=== PATIENT | female | born 1945 | race American Indian/Alaskan Native ===

== ENCOUNTER 2019-04-12 09:56 | Inpatient (IN) | payer MEDICARE ==
[2019-04-12] MEDS ORDERED: NACL 0.9% 500 ML 500 ML IV ONE (10:25)
--- NOTE | 2019-04-12 10:27 | Emergency Department Report ---
ED GI Bleed HPI - General Chief complaint: GI Bleed Stated complaint: RECTAL BLEEDING Time Seen by Provider: 04/12/19 10:15 Source: patient, RN notes reviewed Mode of arrival: Stretcher Limitations: No Limitations - History of Present Illness Initial comments: Primary care DrLeeann: Dr. Bravo this is a pleasant 73 year old female who is not known to this provider previously Her past medical history includes hypertension. She can't recall a previous co lonoscopy. She presents to the ER with a complaint of painless rectal bleeding times one day. She indicates she is not taking anticoagulation. She denies other injuries, denies other complaints, her bleeding is constant, painless, does not radiate anywhere, started this morning, and does not have exacerbating or relieving factors. MD complaint: gross hematochezia -: Gradual Quality: painless Consistency: constant Improves with: none Worsens with: none Associated Symptoms: denies other symptoms - Related Data Home Medications Medication Instructions Recorded Confirmed Last Taken Carvedilol [Coreg] 6.25 mg PO BID 08/19/13 08/19/13 08/18/13 09:00 Losartan/Hydrochlorothiazide 1 each PO QDAY 08/19/13 08/19/13 08/18/13 09:00 [Hyzaar 100-12.5] Previous Rx's Medication Instructions Recorded Last Taken Type HYDROcodone/APAP 5-325 [[place] 1 each PO Q6HR PRN #20 tablet 08/19/13 Unknown Rx 5/325 mg] Ibuprofen [Motrin] 800 mg PO TID PRN #30 tablet 08/19/13 Unknown Rx Allergies Allergy/AdvReac Type Severity Reaction Status Date / Time No Known Allergies Allergy Unverified 08/19/13 11:14 ED Review of Systems ROS: Stated complaint: RECTAL BLEEDING Other details as noted in HPI Comment: All other systems reviewed and negative Gastrointestinal: hematochezia. denies: abdominal pain, nausea, vomiting, d iarrhea, constipation, hematemesis Genitourinary: denies: dysuria ED Past Medical Hx - Past Medical History Hx Hypertension: Yes Hx Asthma: Yes - Surgical History Additional Surgical History: hysterectomy - Social History Smoking Status: Never Smoker Substance Use Type: None - Medications Home Medications: Home Medications Medication Instructions Recorded Confirmed Last Taken Type Carvedilol [Coreg] 6.25 mg PO BID 08/19/13 08/19/13 08/18/13 09:00 History HYDROcodone/APAP 5-325 [[place] 1 each PO Q6HR PRN #20 tablet 08/19/13 Unknown Rx 5/325 mg] Ibuprofen [Motrin] 800 mg PO TID PRN #30 tablet 08/19/13 Unknown Rx Losartan/Hydrochlorothiazide 1 each PO QDAY 08/19/13 08/19/13 08/18/13 09:00 History [Hyzaar 100-12.5] ED Physical Exam - General Limitations: No Limitations General appearance: alert, in no apparent distress - Head Head exam: Present: atraumatic, normocephalic - Eye Eye exam: Present: normal appearance, EOMI. Absent: nystagmus - ENT ENT exam: Present: normal exam, normal orophraynx, mucous membranes moist, normal external ear exam - Neck Neck exam: Present: normal inspection, full ROM. Absent: tenderness, meningismus - Respiratory Respiratory exam: Present: normal lung sounds bilaterally. Absent: respiratory distress - Cardiovascular Cardiovascular Exam: Present: regular rate, normal rhythm, normal heart sounds. Absent: bradycardia, tachycardia, irregular rhythm, systolic murmur, diastolic murmur, rubs, gallop - GI/Abdominal GI/Abdominal exam: Present: soft. Absent: distended, tenderness, guarding, rebound, rigid, pulsatile mass - Rectal Rectal exam: Present: normal inspection, heme (+) stool, bloody stool, other (dark red bleeding noted on rectal examination, chaperoned by nurse Smith begum) - Extremities Exam Extremities exam: Present: normal inspection, full ROM, other (2+ pulses noted in the bilateral upper, lower extremities. Compartments soft. No long bony tenderness. The pelvis is stable.). Absent: joint swelling, calf tenderness - Back Exam Back exam: Present: normal inspection, full ROM. Absent: tenderness, CVA tenderness (R), CVA tenderness (L), paraspinal tenderness, vertebral tenderness - Neurological Exam Neurological exam: Present: alert, oriented X3, other (Extraocular movements intact. Tongue midline. No facial droop. Facial sensation intact to light touch in the V1, V2, V3 distribution bilaterally. 5 and 5 strength in 4 extremities.. Sensation is intact to light touch in 4 extremities.). Absent: motor sensory deficit - Psychiatric Psychiatric exam: Present: anxious - Skin Skin exam: Present: warm, dry, intact, normal color. Absent: rash ED Course Vital Signs 04/12/19 04/12/19 04/12/19 10:16 10:25 10:31 Temperature 98.2 F Pulse Rate 75 72 Respiratory 14 12 Rate Blood Pressure 119/40 119/40 103/56 Blood Pressure 119/40 [Right] O2 Sat by Pulse 100 100 100 Oximetry 04/12/19 04/12/19 04/12/19 10:33 10:45 11:00 Temperature Pulse Rate 79 66 Respiratory 14 20 10 L Rate Blood Pressure 103/56 121/50 Blood Pressure [Right] O2 Sat by Pulse 100 100 100 Oximetry 04/12/19 04/12/19 04/12/19 11:15 11:31 11:45 Temperature Pulse Rate 64 65 63 Respiratory 12 13 Rate Blood Pressure 121/50 Blood Pressure [Right] O2 Sat by Pulse 100 100 100 Oximetry 04/12/19 04/12/19 04/12/19 12:00 13:00 13:15 Temperature Pulse Rate 61 65 78 Respiratory 13 12 Rate Blood Pressure 106/73 135/56 135/56 Blood Pressure [Right] O2 Sat by Pulse 100 100 Oximetry ED Medical Decision Making - Lab Data Result diagrams: 04/12/19 10:49 04/12/19 10:49 Vital Signs 04/12/19 04/12/19 10:25 10:33 Temperature 98.2 F Pulse Rate 75 Respiratory 14 14 Rate Blood Pressure 119/40 Blood Pressure 119/40 [Right] O2 Sat by Pulse 100 100 Oximetry Lab Results 04/12/19 04/12/19 04/12/19 Range/Units 10:49 10:49 10:49 WBC 6.1 (4.5-11.0) K/mm3 RBC 3.36 L (3.65-5.03) M/mm3 Hgb 10.4 (10.1-14.3) gm/dl Hct 31.5 (30.3-42.9) % MCV 94 (79-97) fl MCH 31 (28-32) pg MCHC 33 (30-34) % RDW 14.1 (13.2-15.2) % Plt Count 149 (140-440) K/mm3 Lymph % (Auto) 19.2 (13.4-35.0) % [place] % (Auto) 9.1 H (0.0-7.3) % Eos % (Auto) 2.1 (0.0-4.3) % Baso % (Auto) 0.4 (0.0-1.8) % Lymph # 1.2 (1.2-5.4) K/mm3 [place] # 0.6 (0.0-0.8) K/mm3 Eos # 0.1 (0.0-0.4) K/mm3 Baso # 0.0 (0.0-0.1) K/mm3 Seg Neutrophils % 69.2 (40.0-70.0) % Seg Neutrophils # 4.2 (1.8-7.7) K/mm3 PT (12.2-14.9) Sec. INR (0.87-1.13) APTT (24.2-36.6) Sec. Sodium (137-145) mmol/L Potassium (3.6-5.0) mmol/L Chloride (98-107) mmol/L Carbon Dioxide (22-30) mmol/L Anion Gap mmol/L BUN (7-17) mg/dL Creatinine (0.7-1.2) mg/dL Estimated GFR ml/min BUN/Creatinine Ratio % Glucose (65-100) mg/dL Calcium (8.4-10.2) mg/dL Magnesium 1.70 (1.7-2.3) mg/dL Total Bilirubin (0.1-1.2) mg/dL AST (5-40) units/L ALT (7-56) units/L Alkaline Phosphatase (35-129) units/L Total Creatine Kinase 142 H (30-135) units/L Total Protein (6.3-8.2) g/dL Albumin (3.9-5) g/dL Albumin/Globulin Ratio % Blood Type O POSITIVE 04/12/19 04/12/19 Range/Units 10:49 10:49 WBC (4.5-11.0) K/mm3 RBC (3.65-5.03) M/mm3 Hgb (10.1-14.3) gm/dl Hct (30.3-42.9) % MCV (79-97) fl MCH (28-32) pg MCHC (30-34) % RDW (13.2-15.2) % Plt Count (140-440) K/mm3 Lymph % (Auto) (13.4-35.0) % [place] % (Auto) (0.0-7.3) % Eos % (Auto) (0.0-4.3) % Baso % (Auto) (0.0-1.8) % Lymph # (1.2-5.4) K/mm3 [place] # (0.0-0.8) K/mm3 Eos # (0.0-0.4) K/mm3 Baso # (0.0-0.1) K/mm3 Seg Neutrophils % (40.0-70.0) % Seg Neutrophils # (1.8-7.7) K/mm3 PT 14.0 (12.2-14.9) Sec. INR 1.11 (0.87-1.13) APTT 24.7 (24.2-36.6) Sec. Sodium 138 (137-145) mmol/L Potassium 3.8 (3.6-5.0) mmol/L Chloride 104.0 (98-107) mmol/L Carbon Dioxide 21 L (22-30) mmol/L Anion Gap 17 mmol/L BUN 19 H (7-17) mg/dL Creatinine 1.0 (0.7-1.2) mg/dL Estimated GFR > 60 ml/min BUN/Creatinine Ratio 19 % Glucose 115 H (65-100) mg/dL Calcium 8.8 (8.4-10.2) mg/dL Magnesium (1.7-2.3) mg/dL Total Bilirubin 0.50 (0.1-1.2) mg/dL AST 14 (5-40) units/L ALT 10 (7-56) units/L Alkaline Phosphatase 68 (35-129) units/L Total Creatine Kinase (30-135) units/L Total Protein 6.3 (6.3-8.2) g/dL Albumin 3.5 L (3.9-5) g/dL Albumin/Globulin Ratio 1.3 % Blood Type - EKG Data -: EKG Interpreted by Tx EKG shows normal: sinus rhythm Rate: normal - EKG Data 04/12/19 12:03 This is a normal sinus rhythm, 65 bpm, normal axis, QTC within normal limits, no endorsement of chest pain, the EKG is not consistent with ST elevation myocardial infarction. EKG appears to be unchanged from prior EKG from July 2014. - Medical Decision Making Differential diagnosis, including not limited to: Diverticulosis, angiodysplasia, upper GI bleed, malignancy, internal hemorrhoids Assessment and plan: 73-year-old female with dark red blood per rectum, hemodynamically stable, no recent colonoscopy that she can recall, to be admitted to the medical service for observation, and GI consultation and presumed colonoscopy. Discussed with gastroenterology on-call, Dr. Reynaga, who agrees to follow in consultation. Contacted covering physician for the patient's private physician, Dr. Riley who graciously agrees to admit the patient to the medical service. Discussed plan of care for admission with patient who verbalizes understanding, and who is amenable to observation. Critical care attestation.: If time is entered above; I have spent that time in minutes in the direct care of this critically ill patient, excluding procedure time. ED Disposition Clinical Impression: GIB (gastrointestinal bleeding) Qualifiers: GI bleed type/associated pathology: unspecified gastrointestinal hemorrhage type Qualified Code(s): K92.2 - Gastrointestinal hemorrhage, unspecified Disposition: -09 OP ADMIT IP TO THIS HOSP Is pt being admited?: Yes Does the pt Need Aspirin: No Condition: Good
[2019-04-12 11:21] LABS: Basophils % (Auto) 0.4 % (0.0-1.8); Eosinophils # (Auto) 0.1 K/mm3 (0.0-0.4); Eosinophils % (Auto) 2.1 % (0.0-4.3); Hematocrit 31.5 % (30.3-42.9); Hemoglobin 10.4 gm/dl (10.1-14.3); Lymphocytes # (Auto) 1.2 K/mm3 (1.2-5.4); Lymphocytes % (Auto) 19.2 % (13.4-35.0); Mean Corpuscular HGB Conc 33 % (30-34); Mean Corpuscular Volume 94 fl (79-97); Monocytes # (Auto) 0.6 K/mm3 (0.0-0.8); Monocytes % (Auto) 9.1 % (0.0-7.3); Platelet Count 149 K/mm3 (140-440); Red Blood Count 3.36 M/mm3 (3.65-5.03); Red Cell Distribution Width 14.1 % (13.2-15.2)
[2019-04-12 11:27] LABS: Alanine Aminotransferase 10 units/L (7-56); Albumin 3.5 g/dL (3.9-5); BUN/Creatinine Ratio 19; Blood Urea Nitrogen 19 mg/dL (7-17); Calcium 8.8 mg/dL (8.4-10.2); Hemolysis Index 5
[2019-04-12 11:28] LABS: INR 1.11 (0.87-1.13)
[2019-04-12 11:29] LABS: Partial Thromboplastin Time 24.7 Sec. (24.2-36.6)
[2019-04-12] MEDS ORDERED: ZOFRAN ODT PO PRN (12:05)
[2019-04-12] MEDS: NACL 0.9% 1000 ML 1,000 ML IV SCH (18:03)
--- NOTE | 2019-04-12 18:35 | History and Physical Report ---
History of Present Illness Date of examination: 04/12/19 Date of admission: 04/12/19 12:06 Chief complaint: Blood in the stool since yesterday History of present illness: Patient seen and examined chart reviewed from the emergency room, 73-year-old female presented to the emergency room on account of passing bright red blood per rectum which started yesterday morning, patient stated that she has several episodes yesterday and stopped toward the evening yesterday however noticed new episodes of but could not as well as dark colored stool with blood earlier this morning as well patient had symptoms on O2 bowel movement earlier before presenting the emergency room today. Patient denied any associated abdominal pain or change in bowel diarrhea or constipation and denied any prior history of lower GI bleeding. Procedures cardiac ventricular hypertension for which she takes metoprolol for which patient stated has been controlling her blood pressure presents also treated for degenerative joint disease for which she is on meloxicam which she also stated that she has been taking consistently. There is no fever no chills denied any chest pain or shortness of breath. Patient was evaluated in the emergency room blood pressure was noted to be stable hemoglobin also noted to be within normal range of percent. Patient is admitted for further evaluation including possible lower endoscopy to [facility] for the new-onset lower GI bleeding Past History Past Medical History: hypertension Social history: lives with family Family history: hypertension Medications and Allergies Allergies Allergy/AdvReac Type Severity Reaction Status Date / Time No Known Allergies Allergy Unverified 08/19/13 11:14 Home Medications Medication Instructions Recorded Confirmed Last Taken Type Carvedilol [Coreg] 6.25 mg PO BID 08/19/13 08/19/13 08/18/13 09:00 History HYDROcodone/APAP 5-325 [[place] 1 each PO Q6HR PRN #20 tablet 08/19/13 Unknown Rx 5/325 mg] Ibuprofen [Motrin] 800 mg PO TID PRN #30 tablet 08/19/13 Unknown Rx Losartan/Hydrochlorothiazide 1 each PO QDAY 08/19/13 08/19/13 08/18/13 09:00 History [Hyzaar 100-12.5] Active Meds: Active Medications Acetaminophen (Tylenol) 650 mg PO Q6HR PRN PRN Reason: Pain Carvedilol (Coreg) 6.25 mg PO BID CHANA Sodium Chloride (Nacl 0.9% 1000 Ml) 1,000 mls @ 75 mls/hr IV DIRECT CHANA Last Admin: 04/12/19 18:03 Dose: 75 mls/hr Documented by: Ondansetron HCl (Zofran Odt) 4 mg PO Q6HR PRN PRN Reason: Nausea Review of Systems Gastrointestinal: nausea, hematochezia Musculoskeletal: low back pain, arthritis Exam - Physical Exam Narrative exam: GENERAL:Elderly female in no acute distress not. No jaundice no cyanosis HEENT: Normocephalic. Pupils equal and reactive to light bilaterally Mucous membrane is moist, pharynx is clear, no exudates or hemorrhage. Dentition is normal. NECK: Supple. Neck showed good range of motion. There is no adenopathy noted. No jugular venous distention and no thyromegaly. Neck auscultation showed no carotid bruit. CHEST/LUNGS: Good air exchange bilaterally. Clear to auscultation. There is no respiratory distress noted. Chest percussion normal, symmetrical chest movements with no chest wall tenderness. HEART/CARDIOVASCULAR: No murmur. Regular rate and rhythm. S1 and S2 only, no S3 gallop, no S4. ABDOMEN: Abdomen is soft his nondistended protuberant, no tenderness in the quadrants move guarding or rebound active bowel sounds no masses palpable no audible bruit, no hernia nontender to palpation SKIN: There is no rash. There is no edema. There is no diaphoresis. NEURO: The patient is awake, alert, and oriented. The patient is cooperative. The patient has no focal neurologic deficits. Cranial nerves 2-12 grossly normal, power is 5/5 in all the extremities tested. The patient has normal speech and gait. MUSCULOSKELETAL: There is no tenderness or deformity. There is no limitation range of motion. There is no evidence of acute injury. EXTREMITIES: No pedal edema, no varicose veins, good peripheral pulses symmetrical and bilaterally, no pretibial edema, no finger or toe clubbing. - Constitutional Vitals: Temp Pulse Resp BP Pulse Ox 98.2 F 78 12 135/56 100 04/12/19 10:25 04/12/19 13:15 04/12/19 13:15 04/12/19 13:15 04/12/19 13:15 Results - Labs CBC & Chem 7: 04/12/19 10:49 04/12/19 10:49 Labs: Abnormal lab results 04/12/19 04/12/19 04/12/19 Range/Units 10:49 10:49 10:49 RBC 3.36 L (3.65-5.03) M/mm3 [place] % (Auto) 9.1 H (0.0-7.3) % Carbon Dioxide 21 L (22-30) mmol/L BUN 19 H (7-17) mg/dL Glucose 115 H (65-100) mg/dL Total Creatine Kinase 142 H (30-135) units/L Albumin 3.5 L (3.9-5) g/dL Assessment and Plan - Patient Problems (1) GIB (gastrointestinal bleeding) Current Visit: Yes Status: Acute Qualifiers: GI bleed type/associated pathology: unspecified gastrointestinal hemorrhage type Qualified Code(s): K92.2 - Gastrointestinal hemorrhage, unspecified Plan to address problem: Patient had been admitted to the [facility] floor for further evaluation of renal ejection bleeding. Patient will be kept on clear liquid diet for now and kept nothing by mouth after midnight for endoscopy in a.m. GI consult already obtained. No further GI bleed as reported since admission earlier today. We'll recheck hemoglobin in a.m. to assess the need for possible transfusion if hemoglobin falls below 7. Will start patient on PPI keep on IV fluid and monitor vitals including urinary output closely. (2) Essential (primary) hypertension Current Visit: Yes Status: Acute Plan to address problem: Blood pressure is noted to be stable on current medication recontacted Deep monitor blood pressure for optimal control of blood pressure (3) Degenerative joint disease involving multiple joints Current Visit: Yes Status: Acute Plan to address problem: Patient's currently on meloxicam. We will hold meloxicam for now ongoing GI bleeding and place on plain Tylenol for now and assess the need for stronger pain medication control
[2019-04-12] MEDS: COREG PO SCH (22:03)
[2019-04-13] MEDS: NACL 0.9% 1000 ML 1,000 ML IV SCH ×2 (06:04→19:06)
[2019-04-13 06:42] LABS: Basophils % (Auto) 0.5 % (0.0-1.8); Eosinophils # (Auto) 0.2 K/mm3 (0.0-0.4); Eosinophils % (Auto) 3.8 % (0.0-4.3); Hematocrit 27.1 % (30.3-42.9); Hemoglobin 8.8 gm/dl (10.1-14.3); Lymphocytes # (Auto) 1.7 K/mm3 (1.2-5.4); Lymphocytes % (Auto) 33.6 % (13.4-35.0); Mean Corpuscular HGB Conc 33 % (30-34); Mean Corpuscular Volume 93 fl (79-97); Monocytes # (Auto) 0.6 K/mm3 (0.0-0.8); Monocytes % (Auto) 11.5 % (0.0-7.3); Platelet Count 133 K/mm3 (140-440); Red Cell Distribution Width 14.2 % (13.2-15.2)
--- NOTE | 2019-04-13 09:05 | Consultation ---
REFERRING PHYSICIAN: Dr. Hermes Damon INDICATION: Rectal bleeding. HISTORY OF PRESENT ILLNESS: The patient is a 73-year-old black female presents for rectal bleeding. The patient reports no previous GI evaluation in the past. She reports a history of hypertension. The patient reports yesterday she had about 3-4 bouts of bright blood per rectum with bowel movements earlier in the day. She reports symptoms had stopped and so she decided to just watch it. She reports this morning she had one larger bout of bright blood per rectum with clots. She also felt a little lightheaded and dizzy. She reports that with that concern, she came to the Emergency Room. She reports no history of GI bleed. She reports her last colonoscopy was over 10 years ago and nothing was found. She denies any upper GI symptoms including nausea, vomiting, heartburn, reflux ingestion. Denies any melena. Denies any weight loss. Denies any other specific problems or complaints. PAST MEDICAL HISTORY: Hypertension. MEDICATIONS: Reviewed and updated in the chart. ALLERGIES: No known drug allergies. SOCIAL HISTORY: Denies alcohol, tobacco or drug abuse. FAMILY HISTORY: Negative for colon cancer, IBD, or liver disease. REVIEW OF SYSTEMS: GENERAL: Reports mild weakness. HEENT: No visual complaints or tinnitus. PULMONARY: No shortness of breath. No cough. No chest pain. GASTROINTESTINAL: Reports rectal bleeding. All points of 13-point review of systems otherwise negative. PHYSICAL EXAMINATION: VITAL SIGNS: Temperature of 98.2, pulse 75, respiration 18, blood pressure 119/60. GENERAL: Fairly nourished female in no acute distress. HEENT: Pupils equal, round, reactive. PULMONARY: Clear to auscultation bilaterally. CARDIOVASCULAR: Regular rhythm. Normal S1, S2. ABDOMEN: Positive bowel sounds, soft. SKIN: No obvious rashes. LABORATORY DATA: Pertinent for white count of 6.1, hemoglobin and hematocrit of 10.4 and 31.5, platelet count of 149. Coags are within normal limits. Chem-7 is within normal limits. LFTs are within normal limits. ASSESSMENT AND PLAN: A 73-year-old black female with history of hypertension and no recent GI evaluation, presents now with 2 days of rectal bleeding. She reports 4 bouts yesterday and now one larger bout of bright red blood per rectum with clots. She reports no more bleeding a few hours ago. She denies weight loss. Denies any other specific complaints. Possibility of diverticular bleed versus colitis versus other. PLAN: 1. Follow hematocrit and transfuse as needed. 2. Avoid NSAIDs and aspirin. 3. PPI daily. 4. We will watch for progress later today and consider colonoscopy emergently over the next 1-2 days. 5. We will follow. JOB# [id number] CAB/NTS
[2019-04-13] MEDS: PROTONIX IV SCH (10:00)
[2019-04-13] MEDS: COREG PO SCH ×2 (13:01→21:18)
--- NOTE | 2019-04-13 14:55 | Progress Note ---
Assessment and Plan We'll continue to monitor H&H, keep on clear liquid diet and keep nothing by mouth after midnight for possible colonoscopy in a.m. - Patient Problems (1) GIB (gastrointestinal bleeding) Current Visit: Yes Status: Acute Qualifiers: GI bleed type/associated pathology: unspecified gastrointestinal hemorrhage type Qualified Code(s): K92.2 - Gastrointestinal hemorrhage, unspecified Plan to address problem: Colonoscopy in a.m. no abdominal pain reported. Lower GI bleed still ongoing (2) Essential (primary) hypertension Current Visit: Yes Status: Acute Plan to address problem: Blood pressure is noted to be stable on current medication recontacted Deep monitor blood pressure for optimal control of blood pressure (3) Degenerative joint disease involving multiple joints Current Visit: Yes Status: Acute Plan to address problem: Patient's currently on meloxicam. We will hold meloxicam for now ongoing GI bleeding and place on plain Tylenol for now and assess the need for stronger pain medication control Subjective Date of service: 04/13/19 Principal diagnosis: lower GI bleeding Interval history: Patient seen and examined, chart reviewed, patient states that she is to have been noted in her stool had 1 bowel movement earlier this morning still had fresh bright red blood with clots, denied any abdominal pain no chest pain or shortness of breath or dizziness. No fever reported by nursing staff. Colonoscopy not done this morning by GI now being scheduled for tomorrow abel roberts. Objective - Exam Narrative Exam: GENERAL:Elderly female in no acute distress not. No jaundice no cyanosis HEENT: Normocephalic. Pupils equal and reactive to light bilaterally Mucous membrane is moist, pharynx is clear, no exudates or hemorrhage. Dentition is normal. NECK: Supple. Neck showed good range of motion. There is no adenopathy noted. No jugular venous distention and no thyromegaly. Neck auscultation showed no carotid bruit. CHEST/LUNGS: Good air exchange bilaterally. Clear to auscultation. There is no respiratory distress noted. Chest percussion normal, symmetrical chest movements with no chest wall tenderness. HEART/CARDIOVASCULAR: No murmur. Regular rate and rhythm. S1 and S2 only, no S3 gallop, no S4. ABDOMEN: Abdomen is soft his nondistended protuberant, no tenderness in the quadrants move guarding or rebound active bowel sounds no masses palpable no audible bruit, no hernia nontender to palpation SKIN: There is no rash. There is no edema. There is no diaphoresis. NEURO: The patient is awake, alert, and oriented. The patient is cooperative. The patient has no focal neurologic deficits. Cranial nerves 2-12 grossly normal, power is 5/5 in all the extremities tested. The patient has normal speech and gait. MUSCULOSKELETAL: There is no tenderness or deformity. There is no limitation range of motion. There is no evidence of acute injury. EXTREMITIES: No pedal edema, no varicose veins, good peripheral pulses symmetrical and bilaterally, no pretibial edema, no finger or toe clubbing. - Constitutional Vitals: Vital Signs - 12hr 04/13/19 13:01 Pulse Rate 69 Blood Pressure 114/50 - Labs CBC & Chem 7: 04/13/19 04:57 04/12/19 10:49 Labs: Abnormal lab results 04/13/19 Range/Units 04:57 RBC 2.90 L (3.65-5.03) M/mm3 Hgb 8.8 L (10.1-14.3) gm/dl Hct 27.1 L (30.3-42.9) % Plt Count 133 L (140-440) K/mm3 [place] % (Auto) 11.5 H (0.0-7.3) %
[2019-04-13 16:04] LABS: Hematocrit 24.3 % (30.3-42.9); Hemoglobin 8.1 gm/dl (10.1-14.3)
[2019-04-13] MEDS ORDERED: GOLYTELY PO ONE (16:37)
--- NOTE | 2019-04-13 17:03 | Gastroenterology Consultation ---
History of Present Illness - Reason for Consult Consult date: 04/13/19 GI bleed - History of Present Illness 73-year-old female without history of GI bleed and last colonoscopy per her report many years ago presented with BRBPR. She reports not having had rectal bleeding in the past. She reports multiple episodes of bright red blood starting 1-2 days ago continuing throughout the night and this morning. She did have a significant drop in her hemoglobin. Past History Past Medical History: hypertension Social history: lives with family Family history: hypertension Home medications reviewed updated and reconciled Past History Past Medical History: hypertension Past Surgical History: No surgical history Social history: lives with family Family history: hypertension Medications and Allergies Allergies Allergy/AdvReac Type Severity Reaction Status Date / Time No Known Allergies Allergy Unverified 08/19/13 11:14 Home Medications Medication Instructions Recorded Confirmed Last Taken Type Carvedilol [Coreg] 6.25 mg PO BID 08/19/13 04/12/19 08/18/13 09:00 History HYDROcodone/APAP 5-325 [[place] 1 each PO Q6HR PRN #20 tablet 08/19/13 04/12/19 Un known Rx 5/325 mg] Ibuprofen [Motrin] 800 mg PO TID PRN #30 tablet 08/19/13 04/12/19 Unknown Rx Losartan/Hydrochlorothiazide 1 each PO QDAY 08/19/13 04/12/19 08/18/13 09:00 History [Hyzaar 100-12.5] Active Meds: Active Medications Acetaminophen (Tylenol) 650 mg PO Q6HR PRN PRN Reason: Pain Carvedilol (Coreg) 6.25 mg PO BID [facility] Last Admin: 04/13/19 13:01 Dose: 6.25 mg Documented by: Sodium Chloride (Nacl 0.9% 1000 Ml) 1,000 mls @ 75 mls/hr IV DIRECT [facility] Last Admin: 04/13/19 06:04 Dose: 75 mls/hr Documented by: Ondansetron HCl (Zofran Odt) 4 mg PO Q6HR PRN PRN Reason: Nausea Pantoprazole Sodium (Protonix) 40 mg IV QDAY [facility] Last Admin: 04/13/19 10:00 Dose: 40 mg Documented by: Review of Systems - Review of Systems All systems: negative Constitutional: weakness Gastrointestinal: hematochezia Exam - Constitutional Vital Signs: Temp Pulse Resp BP Pulse Ox 98.5 F 69 20 114/50 100 04/13/19 01:58 04/13/19 13:01 04/13/19 01:58 04/13/19 13:01 04/13/19 01:58 General appearance: no acute distress - EENT Eyes: EOM intact ENT: hearing intact - Neck Neck: supple - Respiratory Respiratory: bilateral: CTA - Cardiovascular Rhythm: regular - Gastrointestinal General gastrointestinal: Present: soft - Integumentary Integumentary: Present: dry - Neurologic Neurological: alert and oriented x3 - Psychiatric Psychiatric: appropriate mood/affect - Labs CBC & Chem 7: 04/13/19 15:00 04/12/19 10:49 Lab Results: Laboratory Results - last 24 hr 04/13/19 04/13/19 04:57 15:00 WBC 5.1 RBC 2.90 L Hgb 8.8 L 8.1 L Hct 27.1 L 24.3 L MCV 93 MCH 31 MCHC 33 RDW 14.2 Plt Count 133 L Lymph % (Auto) 33.6 [place] % (Auto) 11.5 H Eos % (Auto) 3.8 Baso % (Auto) 0.5 Lymph # 1.7 [place] # 0.6 Eos # 0.2 Baso # 0.0 Seg Neutrophils % 50.6 Seg Neutrophils # 2.6 Assessment and Plan Patient with lower GI bleed, prep tonight for colonoscopy tomorrow. Trend hemoglobin. If she has massive bleeding please send for stat nuclear GI bleed scan or CT angiography to see if a source can be isolated immediately. Otherwise, I will prep her for the colonoscopy tonight n.p.o. past midnight for colonoscopy tomorrow differential diagnosis for the source includes diverticular bleed, AVM, polyp or mass, etc. - Patient Problems (1) GIB (gastrointestinal bleeding) Current Visit: Yes Status: Acute Qualifiers: GI bleed type/associated pathology: unspecified gastrointestinal hemorrhage type Qualified Code(s): K92.2 - Gastrointestinal hemorrhage, unspecified
--- NOTE | 2019-04-14 01:49 | Event Note ---
Date: 04/14/19 Code Met called at 0115. Pt was on the commode and I suspect had a vagal response. The nurse found pt on the floor and confused. There was a large amount of blood in commode. Stat CBC, BMP, coags, cardiac enzymes, and EKG was ordered. Pt was hypotensive SBP in low 90's. She was given 500cc bolus and was responsive.
[2019-04-14 02:19] LABS: INR 1.29 (0.87-1.13)
[2019-04-14 02:32] LABS: BUN/Creatinine Ratio 10; Blood Urea Nitrogen 9 mg/dL (7-17); Calcium 8.2 mg/dL (8.4-10.2); Creatine Kinase MB 2.1 ng/mL (0.0-4.0); Hemolysis Index 5
[2019-04-14 02:55] LABS: Basophils % (Auto) 0.4 % (0.0-1.8); Eosinophils # (Auto) 0.1 K/mm3 (0.0-0.4); Eosinophils % (Auto) 1.3 % (0.0-4.3); Hematocrit 21.1 % (30.3-42.9); Lymphocytes # (Auto) 2.8 K/mm3 (1.2-5.4); Lymphocytes % (Auto) 35.1 % (13.4-35.0); Mean Corpuscular HGB Conc 33 % (30-34); Mean Corpuscular Volume 94 fl (79-97); Monocytes # (Auto) 0.5 K/mm3 (0.0-0.8); Monocytes % (Auto) 6.9 % (0.0-7.3); Platelet Count 143 K/mm3 (140-440); Red Blood Count 2.25 M/mm3 (3.65-5.03)
[2019-04-14] MEDS: NACL 0.9% 1000 ML 1,000 ML IV SCH ×3 (03:51→20:57)
[2019-04-14] MEDS ORDERED: NACL 0.9% 500 ML 500 ML IV ONE ×2 (06:19→21:41)
--- NOTE | 2019-04-14 07:14 | Event Note ---
Date: 04/13/19 JUAN JOSE MINH WAS CALLED ON PATIENT AT ABOUT 1.15AM. PATIENT NOTED TO HAVE PASSED OUT IN THE TOILET AFTER PASSING LARGE AMOUNT OF BLOOD. PATIENT NEVER LOST HER PULSE ON ARRIVAL ;PATIENT BEING ATTENDED BY NURSES AND ER DOCTOR (DR. KENNEY) EVALUATED PATIENT AND WAS ON HIS WAY OUTO/E PATIENT LETHERGIC BUT ABLE TO OPE HER EYES AND COMMUNICATE WITH ME. VITAL SIGN STABLE. [facility] EXAM REVEALED NORMAL HEART SOUND LUNG EXAM ; SHOWED GOOD AIR ENTRY . PLAN; 1. STAT CT HEAD ORDERED 2. STAT LAB TEST ORDERED (CBC,CMP,CARDIAC ENZYMES) 3. STAT 12 LEAD EKG ORDERED. 4. NURSE MIRTA INSTRUCTED TO NOTIFY DR. BENJAMIN WHO IS PATIENTS ATTENDING TO TAKE OVER.
--- NOTE | 2019-04-14 09:05 | Anesthesia Consultation ---
Anesthesia Consult and Med Hx Date of service: 04/14/19 - Airway Anesthetic Teeth Evaluation: Dentures (upper and lower), Edentulous ROM Head & Neck: Adequate Mental/Hyoid Distance: Adequate Mallampati Class: Class III Intubation Access Assessment: Possibly Difficult - Pre-Operative Health Status ASA Pre-Surgery Classification: ASA3 Proposed Anesthetic Plan: MAC - Pulmonary Hx Asthma: Yes - Cardiovascular System Hx Hypertension: Yes - Central Nervous System Hx Back Pain: Yes (DJD knees) - Hematic Hx Anemia: Yes - Other Systems Hx Obesity: Yes (BMI 39.1)
--- NOTE | 2019-04-14 09:06 | Anesthesia Day of Surgery ---
Anesthesia Day of Surgery - Day of Surgery Patient Examined: Yes Patient H&P Reviewed: Yes Patient is NPO: Yes
[2019-04-14] MEDS ORDERED: DIPRIVAN 10 MG/ML IV ONE (09:45)
--- NOTE | 2019-04-14 10:18 | Operative Report ---
Operative Report Operative Report: DOS: 04/14/19 SURGEON: Jose White MD COLONOSCOPY REPORT PREOPERATIVE AND POSTOPERATIVE DIAGNOSIS: GI bleed DESCRIPTION OF PROCEDURE: The colonoscope was passed to the cecum as identified by the ileocecal valve and appendiceal orifice. Scope was carefully withdrawn. Retroflexion was performed in the rectum. At the end of procedure, the scope was cleaned using normal technique. Vital signs monitored continuously throughout. SEDATION: Provided by Anesthesiology Services. Quality of the prep was poor COMPLICATIONS: None. ESTIMATED BLOOD LOSS: minimal FINDINGS: * Large amount of fresh blood throughout the entire colon. No source for active bleeding was seen however despite extensive and careful search. * Moderate diverticulosis scattered throughout the entire colon * Unable to intubate terminal ileum due to extensive looping * Medium sized Anal condyloma RECOMMENDATIONS: * Bleeding most consistent with diverticular bleed, but cannot isolate which one is the source as there was no active bleeding at the time of the procedure. * Next time patient bleeds, send for a stat tagged RBC scan to try to isolate location and then call IR for embolization of the scan is positive * continue to monitor closely
[2019-04-14] MEDS ORDERED: FLUSH HEPARIN IV ONE (11:33)
[2019-04-14] MEDS ORDERED: XYLOCAINE MPF 2% ONE (12:30)
--- NOTE | 2019-04-14 14:39 | Nuclear Medicine Report ---
Nuclear GI bleed study INDICATION: Gastrointestinal bleeding 3 days ago, not currently Study was performed with autologous red cell tagging using 20 mCi of technetium UltraTag. Study was c arried out to 1 hour. I do not see clear evidence of gastrointestinal hemorrhage. The stomach shows progressive increase in activity but without progression of this activity more distally in the gastrointestinal tract. This is thought likely due to associated technetium in the gastric mucosa rather than related to GI bleedi ng. IMPRESSION: Negative study Signer Name: Shay Bean MD Signed: 04/14/2019 2:34 PM Workstation Name: [id number]
[2019-04-14] MEDS: PROTONIX IV SCH (15:17)
[2019-04-14] MEDS: COREG PO SCH ×2 (15:17→22:58)
[2019-04-14] MEDS: TYLENOL PO PRN (15:18)
[2019-04-14 20:45] LABS: Basophils # (Auto) 0.1 K/mm3 (0.0-0.1); Basophils % (Auto) 0.6 % (0.0-1.8); Eosinophils # (Auto) 0.3 K/mm3 (0.0-0.4); Eosinophils % (Auto) 3.2 % (0.0-4.3); Hematocrit 21.8 % (30.3-42.9); Hemoglobin 7.4 gm/dl (10.1-14.3); Lymphocytes # (Auto) 1.8 K/mm3 (1.2-5.4); Mean Corpuscular HGB Conc 34 % (30-34); Mean Corpuscular Volume 93 fl (79-97); Monocytes # (Auto) 0.9 K/mm3 (0.0-0.8); Monocytes % (Auto) 10.9 % (0.0-7.3); Platelet Count 120 K/mm3 (140-440); Red Blood Count 2.35 M/mm3 (3.65-5.03); Red Cell Distribution Width 14.2 % (13.2-15.2)
--- NOTE | 2019-04-14 21:37 | Progress Note ---
Assessment and Plan 73-year-old lady who presented emergency department 04/12/2019, for bright red blood per rectum. No active bleeding at the time of presentation. Patient was also hemodynamically stable. GI consult was obtained. IV hydration commenced. Hemoglobin dropped. Colonoscopy was done. Multiple diverticula scattered throughout entire identified. No one was actively bleeding at the time. - GIB (gastrointestinal bleeding) Colonoscopy today that showed possible diverticular bleed. No active bleeding identified at time of colonoscopy Patient's remains hemodynamically stable Serial H&H IV hydration and Protonix IV Hold NSAIDs and anticoagulation - Anemia From a active LGI bleeding, amplified by hemodilution Type and screen 2 units of blood Transfuse if Hg is less than 8 - Essential (primary) hypertension Blood pressure is noted to be stable Continue current medication - Metabolic acidosis IV hydration - Degenerative joint disease involving multiple joints Patient's currently on meloxicam. We will hold meloxicam or any NSAID for ongoing GI bleeding and place on plain Tylenol for now Assess the need for stronger pain medication control - DVT prophylaxis: With SCDs only. Hold any anticoagulation because of GI bleeding - CODE STATUS: Patient is full code - Disposition: Per hospital course -Time spent: 30 minutes Subjective Date of service: 04/14/19 Principal diagnosis: lower GI bleeding Interval history: Seen and examined her. Had 2 episodes of syncope and was off today while in the bathroom. Patient blood pressure and heart rate have remained stable. This did have an bright red blood per rectum. Objective - Exam Narrative Exam: Constitutional: Well-nourished well-developed. In no distress Head: Normocephalic atraumatic Eyes: Pupils are equal round and reactive to light Nose: No enlarged turbinates, no septal deviation. Mouth: Moist mucous membranes. Neck: Supple no thyromegaly. No bruit. No JVD Heart: Regular rate and rhythm, S1-S2 normal. No rubs murmurs or gallop Lungs: Clear to auscultation bilaterally. no rales or rhonchi Abdomen: Soft, nontender. Bowel sound are present. Extremities: No edema, no cyanosis, no clubbing. Neuro: Alert oriented Oriented x3. No focal sensory or motor deficit. Skin: No rashes or hyperpigmented spots Musculoskeletal system: No joint pain or swelling Hematological: No petechia or subcutanous hemorrhages. Immunological: No multiple septic spots on the skin Lymphatic: No generalized lymphadenopathy Psychiatry: Euthymic. Calm. - Constitutional Vitals: Vital Signs - 12hr 04/14/19 04/14/19 04/14/19 10:00 10:14 10:23 Temperature 98.5 F Pulse Rate 93 H 79 Respiratory 16 13 Rate Blood Pressure 90/60 99/50 Blood Pressure [Right] O2 Sat by Pulse 98 98 100 Oximetry 04/14/19 04/14/19 04/14/19 10:34 10:41 10:49 Temperature Pulse Rate 78 75 74 Respiratory 15 11 L 15 Rate Blood Pressure 145/60 138/57 129/70 Blood Pressure [Right] O2 Sat by Pulse 98 97 99 Oximetry 04/14/19 04/14/19 04/14/19 13:31 15:12 15:17 Temperature 98.2 F Pulse Rate 89 89 Respiratory 18 Rate Blood Pressure 101/52 101/52 Blood Pressure [Right] O2 Sat by Pulse 100 100 Oximetry 04/14/19 04/14/19 04/14/19 15:45 15:49 16:00 Temperature 98.8 F 98.8 F Pulse Rate 83 81 79 Respiratory 20 20 20 Rate Blood Pressure 134/66 134/66 121/69 Blood Pressure [Right] O2 Sat by Pulse 100 100 100 Oximetry 04/14/19 04/14/19 04/14/19 16:30 17:00 17:05 Temperature 99.0 F 98.9 F Pulse Rate 81 74 72 Respiratory 20 20 20 Rate Blood Pressure 137/72 133/70 133/70 Blood Pressure [Right] O2 Sat by Pulse 80 L 99 100 Oximetry 04/14/19 04/14/19 04/14/19 17:30 17:35 17:57 Temperature 98.9 F Pulse Rate 69 70 70 Respiratory 18 18 48 H Rate Blood Pressure 121/67 121/67 137/68 Blood Pressure [Right] O2 Sat by Pulse 99 100 100 Oximetry 04/14/19 04/14/19 04/14/19 17:58 18:30 18:37 Temperature 98.9 F 97.8 F Pulse Rate 74 81 84 Respiratory 18 18 20 Rate Blood Pressure 137/68 131/79 131/79 Blood Pressure [Right] O2 Sat by Pulse 100 100 100 Oximetry 04/14/19 04/14/19 18:44 19:37 Temperature 99 F 99.3 F Pulse Rate 76 84 Respiratory 20 18 Rate Blood Pressure 132/76 108/44 Blood Pressure 132/76 [Right] O2 Sat by Pulse 100 100 Oximetry - Labs CBC & Chem 7: 04/14/19 20:27 04/14/19 01:27 Labs: Abnormal lab results 04/12/19 04/14/19 04/14/19 Range/Units 10:49 01:27 01:27 RBC 2.25 L (3.65-5.03) M/mm3 Hgb 7.0 L (10.1-14.3) gm/dl Hct 21.1 L (30.3-42.9) % Plt Count (140-440) K/mm3 Lymph % (Auto) 35.1 H (13.4-35.0) % [place] % (Auto) (0.0-7.3) % [place] # (0.0-0.8) K/mm3 PT (12.2-14.9) Sec. INR (0.87-1.13) APTT (24.2-36.6) Sec. Chloride 109.4 H (98-107) mmol/L Carbon Dioxide 18 L (22-30) mmol/L Glucose 182 H (65-100) mg/dL POC Glucose (70-105) Calcium 8.2 L (8.4-10.2) mg/dL Crossmatch See Detail 04/14/19 04/14/19 04/14/19 Range/Units 01:27 01:30 20:27 RBC 2.35 L (3.65-5.03) M/mm3 Hgb 7.4 L (10.1-14.3) gm/dl Hct 21.8 L (30.3-42.9) % Plt Count 120 L (140-440) K/mm3 Lymph % (Auto) (13.4-35.0) % [place] % (Auto) 10.9 H (0.0-7.3) % [place] # 0.9 H (0.0-0.8) K/mm3 PT 15.8 H (12.2-14.9) Sec. INR 1.29 H (0.87-1.13) APTT 20.0 L (24.2-36.6) Sec. Chloride (98-107) mmol/L Carbon Dioxide (22-30) mmol/L Glucose (65-100) mg/dL POC Glucose 186 H (70-105) Calcium (8.4-10.2) mg/dL Crossmatch
[2019-04-14] MEDS ORDERED: NORCO 5/325 PO PRN (21:38)
[2019-04-15 06:32] LABS: Basophils % (Auto) 0.5 % (0.0-1.8); Eosinophils # (Auto) 0.3 K/mm3 (0.0-0.4); Eosinophils % (Auto) 4.5 % (0.0-4.3); Hematocrit 21.5 % (30.3-42.9); Hemoglobin 7.2 gm/dl (10.1-14.3); Lymphocytes # (Auto) 1.9 K/mm3 (1.2-5.4); Lymphocytes % (Auto) 25.7 % (13.4-35.0); Mean Corpuscular HGB Conc 33 % (30-34); Mean Corpuscular Volume 93 fl (79-97); Monocytes # (Auto) 0.8 K/mm3 (0.0-0.8); Monocytes % (Auto) 10.5 % (0.0-7.3); Platelet Count 120 K/mm3 (140-440); Red Blood Count 2.32 M/mm3 (3.65-5.03); Red Cell Distribution Width 14.1 % (13.2-15.2)
[2019-04-15 06:50] LABS: Alanine Aminotransferase 12 units/L (7-56); Albumin 2.9 g/dL (3.9-5); BUN/Creatinine Ratio 4; Blood Urea Nitrogen 4 mg/dL (7-17); Calcium 8.2 mg/dL (8.4-10.2); Hemolysis Index 3
--- NOTE | 2019-04-15 07:12 | Progress Note ---
Assessment and Plan 73-year-old lady who presented emergency department 04/12/2019, for bright red blood per rectum. No active bleeding at the time of presentation. Patient was also hemodynamically stable. GI consult was obtained. IV hydration commenced. Hemoglobin dropped. Colonoscopy was done. Multiple diverticula scattered throughout entire colon identified. No actively bleeding site identified at colonoscopy. - LGIB (Lower gastrointestinal bleeding) Colonoscopy showed extensive diverticular in the entire colon. D/4 possible diverticular bleed inferred. No active bleeding identified at time of colonoscopy Bleeding scan was negative Patient's remains hypodermically stable Serial H&H IV hydration and Protonix IV Hold NSAIDs and anticoagulation - Anemia s/p blood transfuison From active LGI bleeding, amplified by hemodilution Type and screen 2 units of blood Transfuse if Hg is less than 8 - Essential (primary) hypertension Blood pressure is noted to be stable Continue current medication. Will hold BB as it may mask any alteration in heart rate from acute GI bleed - Metabolic acidosis IV hydration - Chest wall pain after attempted resuscitation after a code met EKG showed normal sinus rhythm Obtain CXR - Degenerative joint disease involving multiple joints Patient's currently on meloxicam. We will hold meloxicam or any NSAID b/c GI bleeding and place on plain Tylenol for now Assess the need for stronger pain medication control - DVT prophylaxis: With SCDs only. Hold any anticoagulation because of GI bleeding - CODE STATUS: Patient is full code - Disposition: Per hospital course -Time spent: 25 minutes Subjective Date of service: 04/15/19 Principal diagnosis: lower GI bleeding, Anemia, Interval history: Seen and examined. No more BRBPR. Had a unit of blood transfused yesterday. c/o Chest wall pain after resuscitation following code MET 2 days ago Objective - Exam Narrative Exam: Constitutional: Well-nourished well-developed. In no distress Head: Normocephalic atraumatic Eyes: Pupils are equal round and reactive to light Nose: No enlarged turbinates, no septal deviation. Mouth: Moist mucous membranes. Neck: Supple no thyromegaly. No bruit. No JVD Heart: Regular rate and rhythm, S1-S2 normal. No rubs murmurs or gallop Lungs: Clear to auscultation bilaterally. no rales or rhonchi Abdomen: Soft, nontender. Bowel sound are present. Extremities: No edema, no cyanosis, no clubbing. Neuro: Alert oriented Oriented x3. No focal sensory or motor deficit. Skin: No rashes or hyperpigmented spots Musculoskeletal system: No joint pain or swelling Hematological: No petechia or subcutanous hemorrhages. Immunological: No multiple septic spots on the skin Lymphatic: No generalized lymphadenopathy Psychiatry: Euthymic. Calm. - Constitutional Vitals: Vital Signs - 12hr 04/14/19 04/14/19 04/14/19 19:37 22:00 22:58 Temperature 99.3 F Pulse Rate 84 72 84 Pulse Rate [ 89 Right Brachial] Respiratory 18 18 Rate Blood Pressure 108/44 108/44 O2 Sat by Pulse 100 92 Oximetry 04/15/19 02:28 Temperature 98.9 F Pulse Rate 89 Pulse Rate [ Right Brachial] Respiratory 18 Rate Blood Pressure 90/41 O2 Sat by Pulse 92 Oximetry - Labs CBC & Chem 7: 04/15/19 05:32 04/15/19 05:32 Labs: Abnormal lab results 04/12/19 04/14/19 04/15/19 Range/Units 10:49 20:27 05:32 RBC 2.35 L 2.32 L (3.65-5.03) M/mm3 Hgb 7.4 L 7.2 L (10.1-14.3) gm/dl Hct 21.8 L 21.5 L (30.3-42.9) % Plt Count 120 L 120 L (140-440) K/mm3 [place] % (Auto) 10.9 H 10.5 H (0.0-7.3) % Eos % (Auto) 4.5 H (0.0-4.3) % [place] # 0.9 H (0.0-0.8) K/mm3 Potassium (3.6-5.0) mmol/L Chloride (98-107) mmol/L BUN (7-17) mg/dL Glucose (65-100) mg/dL Calcium (8.4-10.2) mg/dL Total Protein (6.3-8.2) g/dL Albumin (3.9-5) g/dL Crossmatch See Detail 04/15/19 Range/Units 05:32 RBC (3.65-5.03) M/mm3 Hgb (10.1-14.3) gm/dl Hct (30.3-42.9) % Plt Count (140-440) K/mm3 [place] % (Auto) (0.0-7.3) % Eos % (Auto) (0.0-4.3) % [place] # (0.0-0.8) K/mm3 Potassium 3.5 L (3.6-5.0) mmol/L Chloride 111.4 H (98-107) mmol/L BUN 4 L (7-17) mg/dL Glucose 102 H (65-100) mg/dL Calcium 8.2 L (8.4-10.2) mg/dL Total Protein 5.2 L (6.3-8.2) g/dL Albumin 2.9 L (3.9-5) g/dL Crossmatch
--- NOTE | 2019-04-15 08:28 | Gastroenterology Progress Note ---
Assessment and Plan Consistent with diverticular bleed. Monitor closely clinically for another 24-48 hours. If patient rebleeds send for stat bleeding scan If no more bleeding and Hgb stable then can discharge home after 24-48 hours - Patient Problems (1) GIB (gastrointestinal bleeding) Current Visit: Yes Status: Acute Qualifiers: GI bleed type/associated pathology: unspecified gastrointestinal hemorrhage type Qualified Code(s): K92.2 - Gastrointestinal hemorrhage, unspecified Subjective Date of service: 04/15/19 Principal diagnosis: lower GI bleeding, Anemia, Interval history: Colonoscopy yesterday did not show the source of bleeding but appearance consistent with diverticular bleed that stopped. Nuclear bleeding scan was negative. Hgb stable today She reports no significant bleeding, though now scared to have BM after passing out the other night on the toilet when having a BM Objective - Constitutional Vitals: Temp Pulse Resp BP Pulse Ox 99.0 F 85 18 112/51 100 04/15/19 07:59 04/15/19 07:59 04/15/19 07:59 04/15/19 07:59 04/15/19 07:59 General appearance: no acute distress - EENT Eyes: EOM intact ENT: hearing intact - Respiratory Respiratory: bilateral: CTA - Cardiovascular Rhythm: regular - Gastrointestinal General gastrointestinal: Present: soft - Labs CBC & Chem 7: 04/15/19 10:44 04/15/19 05:32 Labs: Laboratory Results - last 24 hr 04/12/19 04/14/19 04/14/19 10:49 20:27 23:05 WBC 8.3 RBC 2.35 L Hgb 7.4 L Hct 21.8 L MCV 93 MCH 32 MCHC 34 RDW 14.2 Plt Count 120 L Lymph % (Auto) 22.0 [place] % (Auto) 10.9 H Eos % (Auto) 3.2 Baso % (Auto) 0.6 Lymph # 1.8 [place] # 0.9 H Eos # 0.3 Baso # 0.1 Seg Neutrophils % 63.3 Seg Neutrophils # 5.3 Sodium Potassium Chloride Carbon Dioxide Anion Gap BUN Creatinine Estimated GFR BUN/Creatinine Ratio Glucose Hemoglobin A1c 5.6 Calcium Total Bilirubin AST ALT Alkaline Phosphatase Total Protein Albumin Albumin/Globulin Ratio Blood Type O POSITIVE Antibody Screen Negative Crossmatch See Detail 04/15/19 04/15/19 05:32 05:32 WBC 7.4 RBC 2.32 L Hgb 7.2 L Hct 21.5 L MCV 93 MCH 31 MCHC 33 RDW 14.1 Plt Count 120 L Lymph % (Auto) 25.7 [place] % (Auto) 10.5 H Eos % (Auto) 4.5 H Baso % (Auto) 0.5 Lymph # 1.9 [place] # 0.8 Eos # 0.3 Baso # 0.0 Seg Neutrophils % 58.8 Seg Neutrophils # 4.3 Sodium 143 Potassium 3.5 L Chloride 111.4 H Carbon Dioxide 23 Anion Gap 12 BUN 4 L Creatinine 0.9 Estimated GFR > 60 BUN/Creatinine Ratio 4 Glucose 102 H Hemoglobin A1c Calcium 8.2 L Total Bilirubin 0.30 AST 14 ALT 12 Alkaline Phosphatase 58 Total Protein 5.2 L Albumin 2.9 L Albumin/Globulin Ratio 1.3 Blood Type Antibody Screen Crossmatch
--- NOTE | 2019-04-15 08:38 | XRay Report ---
CHEST 1 VIEW INDICATION / CLINICAL INFORMATION: chest wall pain. COMPARISON: None available. FINDINGS: SUPPORT DEVICES: None. HEART / MEDIASTINUM: No significant abnormality. LUNGS / PLEURA: No significant pulmonary or pleural abnormality. No pneumothorax. ADDITIONAL FINDINGS: No significant additional findings. IMPRESSION: 1. No acute findings. Signer Name: Elijah Chamorro MD Signed: 04/15/2019 8:33 AM Workstation Name: [id number]
[2019-04-15] MEDS: TYLENOL PO PRN (10:10)
[2019-04-15] MEDS: COREG PO SCH ×2 (10:11→21:21)
[2019-04-15] MEDS: PROTONIX IV SCH (10:11)
[2019-04-15] MEDS ORDERED: NACL 0.9% 500 ML 500 ML ONE (10:25)
[2019-04-15 11:03] LABS: Hematocrit 20.4 % (30.3-42.9); Hemoglobin 6.9 gm/dl (10.1-14.3)
[2019-04-16 00:40] LABS: Hematocrit 24.6 % (30.3-42.9); Hemoglobin 8.6 gm/dl (10.1-14.3)
[2019-04-16] MEDS: NACL 0.9% 1000 ML 1,000 ML IV SCH (04:40)
[2019-04-16 04:59] LABS: Basophils % (Auto) 0.6 % (0.0-1.8); Eosinophils # (Auto) 0.3 K/mm3 (0.0-0.4); Eosinophils % (Auto) 5.4 % (0.0-4.3); Hematocrit 23.8 % (30.3-42.9); Hemoglobin 8.2 gm/dl (10.1-14.3); Lymphocytes # (Auto) 1.8 K/mm3 (1.2-5.4); Lymphocytes % (Auto) 29.9 % (13.4-35.0); Mean Corpuscular HGB Conc 35 % (30-34); Mean Corpuscular Volume 91 fl (79-97); Monocytes # (Auto) 0.6 K/mm3 (0.0-0.8); Monocytes % (Auto) 10.4 % (0.0-7.3); Platelet Count 121 K/mm3 (140-440); Red Blood Count 2.61 M/mm3 (3.65-5.03); Red Cell Distribution Width 14.1 % (13.2-15.2)
[2019-04-16 05:20] LABS: Alanine Aminotransferase 10 units/L (7-56); BUN/Creatinine Ratio 4; Blood Urea Nitrogen 3 mg/dL (7-17); Calcium 8.5 mg/dL (8.4-10.2); Hemolysis Index 6
--- NOTE | 2019-04-16 07:36 | Discharge Summary ---
Providers - Providers Date of Admission: 04/13/19 15:01 Date of discharge: 04/16/19 Attending physician: LISA BENJAMIN 04/12/19 10:25 Consult to Physician [CONS] Urgent Comment: Ccalled answ. serv./ bill Consulting Provider: UZAIR BRAVO Physician Instructions: Reason For Exam: lgib Primary care physician: NEO OBRIEN Hospitalization Reason for admission: Lower GI bleeding Condition: Good Pertinent studies: Had a bleeding scan that was unremarkable Procedures: Colonocopy that showed extensively diverticular disease with no active bleeding from any at the time of the colonoscopy Hospital course: 73-year-old lady who presented emergency department 04/12/2019, for bright red blood per rectum. No active bleeding at the time of presentation. Patient was also hemodynamically stable. GI consult was obtained. IV hydration commenced. Hemoglobin dropped from 10.4 to 6.9. Two units of blood was transfused. Colonoscopy was done. Multiple diverticula scattered throughout the entire colon identified. No actively bleeding site identified at colonoscopy. Pt had an episode of syncope while in the restroom prior to colonoscopy but was resuscitated with iv hydration. Hgb has improved to 8.2. No abdominal pain. No more bleeding per rectum. C/o pain on the chest ws from initial compression when she passed out before realizing she had pulse. CXR showed no fracture.. Pt will be mobilized tody and discharged to follow up with me in 3-5 day and GI in 1 week. advised to call or return if bleeding continues. Disposition: - TO HOME OR SELFCARE Time spent for discharge: 35 mins - Discharge Diagnoses (1) Anemia associated with acute blood loss Status: Acute (2) Thrombocytopenia Status: Acute (3) Degenerative joint disease involving multiple joints Status: Acute (4) Essential (primary) hypertension Status: Acute (5) GIB (gastrointestinal bleeding) Status: Acute Qualifiers: GI bleed type/associated pathology: unspecified gastrointestinal hemorrhage type Qualified Code(s): K92.2 - Gastrointestinal hemorrhage, unspecified Core Measure Documentation - Palliative Care Palliative Care/ Comfort Measures: Not Applicable - Core Measures Any of the following diagnoses?: none Exam - Physical Exam Narrative exam: Constitutional: Well-nourished well-developed. In no distress Head: Normocephalic atraumatic Eyes: Pupils are equal round and reactive to light Nose: No enlarged turbinates, no septal deviation. Mouth: Moist mucous membranes. Neck: Supple no thyromegaly. No bruit. No JVD Heart: Regular rate and rhythm, S1-S2 normal. No rubs murmurs or gallop Lungs: Clear to auscultation bilaterally. no rales or rhonchi Abdomen: Soft, nontender. Bowel sound are present. Extremities: No edema, no cyanosis, no clubbing. Neuro: Alert oriented Oriented x3. No focal sensory or motor deficit. Skin: No rashes or hyperpigmented spots Musculoskeletal system: No joint pain or swelling Hematological: No petechia or subcutanous hemorrhages. Immunological: No multiple septic spots on the skin Lymphatic: No generalized lymphadenopathy Psychiatry: Euthymic. Calm. - Constitutional Vitals: Temp Pulse Resp BP Pulse Ox 98.6 F 75 20 118/69 92 04/16/19 02:19 04/16/19 02:19 04/16/19 02:19 04/16/19 02:18 04/16/19 02:19 Plan Activity: fall precautions Weight Bearing Status: Weight Bear as Tolerated Diet: regular Follow up with: PRIMARY CAREMD [Referring] - 3-5 Days NEO OBRIEN MD [Primary Care Provider] - 7 Days Forms: Accompanied Note Prescriptions: Carvedilol [Coreg] 6.25 mg PO BID #60 tablet HYDROcodone/APAP 5-325 [[place] 5-325 mg TAB] 1 each PO Q6HR PRN #10 tablet PRN Reason: Pain
[2019-04-16] MEDS: COREG PO SCH (09:26)
[2019-04-16] MEDS ORDERED: PROTONIX PO SCH (10:00)
[2019-04-16] MEDS: TYLENOL PO PRN (10:45)
--- NOTE | 2019-04-16 11:38 | Gastroenterology Progress Note ---
Assessment and Plan Consistent with diverticular bleed. No more bleeding Safe for discharge home, I reviewed with her signs/symptoms that require ret urning to hospital - Patient Problems (1) GIB (gastrointestinal bleeding) Current Visit: Yes Status: Acute Qualifiers: GI bleed type/associated pathology: unspecified gastrointestinal hemorrhage type Qualified Code(s): K92.2 - Gastrointestinal hemorrhage, unspecified Subjective Date of service: 04/16/19 Principal diagnosis: lower GI bleeding, Anemia, Interval history: Colonoscopy did not show the source of bleeding but appearance consistent with diverticular bleed that stopped. Nuclear bleeding scan was negative. Hgb stable today, and she still reports no bleeding Objective - Constitutional Vitals: Temp Pulse Resp BP Pulse Ox 98.6 F 72 20 142/86 100 04/16/19 07:43 04/16/19 10:00 04/16/19 07:43 04/16/19 09:26 04/16/19 07:43 General appearance: no acute distress - Neck Neck: supple - Respiratory Respiratory effort: normal - Gastrointestinal General gastrointestinal: Present: soft - Labs CBC & Chem 7: 04/16/19 04:03 04/16/19 04:03 Labs: Laboratory Results - last 24 hr 04/12/19 04/15/19 04/16/19 10:49 14:04 00:27 WBC RBC Hgb 8.6 L Hct 24.6 L MCV MCH MCHC RDW Plt Count Lymph % (Auto) Esmeralda % (Auto) Eos % (Auto) Baso % (Auto) Lymph # Esmeralda # Eos # Baso # Seg Neutrophils % Seg Neutrophils # Sodium Potassium Chloride Carbon Dioxide Anion Gap BUN Creatinine Estimated GFR BUN/Creatinine Ratio Glucose Calcium Total Bilirubin AST ALT Alkaline Phosphatase Total Protein Albumin Albumin/Globulin Ratio Blood Type O POSITIVE Antibody Screen Negative Crossmatch See Detail See Detail 04/16/19 04/16/19 04:03 04:03 WBC 6.1 RBC 2.61 L Hgb 8.2 L Hct 23.8 L MCV 91 MCH 32 MCHC 35 H RDW 14.1 Plt Count 121 L Lymph % (Auto) 29.9 Esmeralda % (Auto) 10.4 H Eos % (Auto) 5.4 H Baso % (Auto) 0.6 Lymph # 1.8 Esmeralda # 0.6 Eos # 0.3 Baso # 0.0 Seg Neutrophils % 53.7 Seg Neutrophils # 3.3 Sodium 142 Potassium 3.8 Chloride 109.2 H Carbon Dioxide 24 Anion Gap 13 BUN 3 L Creatinine 0.8 Estimated GFR > 60 BUN/Creatinine Ratio 4 Glucose 101 H Calcium 8.5 Total Bilirubin 0.40 AST 13 ALT 10 Alkaline Phosphatase 62 Total Protein 5.3 L Albumin 3.0 L Albumin/Globulin Ratio 1.3 Blood Type Antibody Screen Crossmatch
[2019-04-16 14:43] VITALS: BP 96/47
== END 2019-04-16 16:20 | disposition home or self-care (01) | DRG 378 ==
LOC: ED 09:56 → 2B-ACE 12:06 → OBSVTOIN 04-13 15:01
PROVIDERS: ADMIT Internal Medicine; ATTEND Internal Medicine
PROC: 0DJD8ZZ Inspection of Lower Intestinal Tract, Via Natural or Artificial Opening Endoscopic (ICD-10-PCS; principal; 2019-04-14)
PROC: 30263N1 (ICD-10-PCS; 2019-04-14)
DX: K57.91 Diverticulosis of intestine, part unspecified, without perforation or abscess with bleeding (principal); E87.2 Acidosis; D62 Acute posthemorrhagic anemia; I10 Essential (primary) hypertension; J45.909 Unspecified asthma, uncomplicated; E66.9 Obesity, unspecified; A63.0 Anogenital (venereal) warts; M19.91 Primary osteoarthritis, unspecified site; D69.6 Thrombocytopenia, unspecified; Z82.49 Family history of ischemic heart disease and other diseases of the circulatory system; Z68.39 Body mass index [BMI] 39.0-39.9, adult; Z79.899 Other long term (current) drug therapy; Z90.710 Acquired absence of both cervix and uterus
CPT/HCPCS: 36415; 36430; 71045; 78278; 80048; 80053; 82271; 82550; 82553; 82962; 83036; 83735; 83880; 84100; 84484; 85014; 85018; 85025; 85610; 85730; 86850; 86900; 86901; 86920; 93005; 93010; G0378; A9560; C9113; J1642; J2704; J7030; J7040; P9016